=== PATIENT | male | born 1975 | race Caucasian/White ===

== ENCOUNTER 2017-05-20 17:31 | Emergency (ER) | payer SELFPAY ==
[2017-05-20 18:05] VITALS: BP 136/88
[2017-05-20] MEDS ORDERED: OXYCODONE-ACETAMINOPHEN 5-325 MG TABLET PO ONE (18:36)
--- NOTE | 2017-05-20 18:37 | ER Document Report ---
ED General - General Chief Complaint: Post Surgical Pain Stated Complaint: POST OP PAIN Time Seen by Provider: 05/20/17 18:28 Mode of Arrival: Ambulatory Information source: Patient Notes: 41 yr old male presents with complaints of right axillary abscess that was drained 5 days ago. Pt denies any fevers or chills, notes it was extremely swollen red with wbc count of 23. pt also notes that he was diagnosed as a diabetic, but was not given any supplies. TRAVEL OUTSIDE OF THE [place] IN LAST 30 DAYS: No - HPI Onset: Last week Onset/Duration: Persistent Quality of pain: Achy Severity: Mild Pain Level: 1 Associated symptoms: None Exacerbated by: Denies Relieved by: Denies Similar symptoms previously: Yes Recently seen / treated by doctor: Yes - Related Data Allergies/Adverse Reactions: erythromycin base Allergy (Verified 05/20/17 18:06) Past Medical History - Social History Smoking Status: Current Every Day Smoker Cigarette use (# per day): Yes Chew tobacco use (# tins/day): No Smoking Education Provided: No Frequency of alcohol use: Occasional Drug Abuse: None Family History: Reviewed & Not Pertinent - Past Medical History Cardiac Medical History: Reports: Hx Hypertension Endocrine Medical History: Reports: Hx Diabetes Mellitus Type 2 Renal/ Medical History: Reports: Hx Kidney Stones. Denies: Hx Peritoneal Dialysis Past Surgical History: Reports: Hx Tonsillectomy - Immunizations Hx Diphtheria, Pertussis, Tetanus Vaccination: No Review of Systems - Review of Systems Notes: REVIEW OF SYSTEMS: CONSTITUTIONAL : Denies fever, chills, or sweats. Denies recent illness. EENT: Denies eye, ear, throat, or mouth pain or symptoms. Denies nasal or sinus congestion or discharge. Denies throat, tongue, or mouth swelling or difficulty swallowing. CARDIOVASCULAR: Denies chest pain. Denies palpitations or racing or irregular heart beat. Denies ankle edema. RESPIRATORY: Denies cough, cold, or chest congestion. Denies shortness of breath, difficulty breathing, or wheezing. GASTROINTESTINAL: Denies abdominal pain or distention. Denies nausea, vomiting , or diarrhea. Denies blood in vomitus, stools, or per rectum. Denies black, tarry stools. Denies constipation. GENITOURINARY: Denies difficulty urinating, painful urination, burning, frequency, blood in urine, or discharge. MUSCULOSKELETAL: Denies back or neck pain or stiffness. Denies joint pain or swelling. SKIN: Admits to abscess HEMATOLOGIC : Denies easy bruising or bleeding. LYMPHATIC: Denies swollen, enlarged glands. NEUROLOGICAL: Denies confusion or altered mental status. Denies passing out or loss of consciousness. Denies dizziness or lightheadedness. Denies headache. Denies weakness or paralysis or loss of use of either side. Denies problems with gait or speech. Denies sensory loss, numbness, or tingling. Denies seizures. PSYCHIATRIC: Denies anxiety or stress. Denies depression, suicidal ideation, or homicidal ideation. ALL OTHER SYSTEMS REVIEWED AND NEGATIVE. Dictation was performed using [employer] voice recognition software PHYSICAL EXAMINATION: GENERAL: Well-appearing, well-nourished and in no acute distress. HEAD: Atraumatic, normocephalic. EYES: Pupils equal round and reactive to light, extraocular movements intact, sclera anicteric, conjunctiva are normal. ENT: Nares patent, oropharynx clear without exudates. Moist mucous membranes. NECK: Normal range of motion, supple without lymphadenopathy LUNGS: Breath sounds clear to auscultation bilaterally and equal. No wheezes rales or rhonchi. HEART: Regular rate and rhythm without murmurs ABDOMEN: Soft, nontender, nondistended abdomen. No guarding, no rebound. No masses appreciated. Musculoskeletal: Normal range of motion, no pitting or edema. No cyanosis. NEUROLOGICAL: Cranial nerves grossly intact. Normal speech, normal gait. Normal sensory, motor exams PSYCH: Normal mood, normal affect. SKIN: Open incision of the right axillary region no drainage noted Physical Exam - Vital signs Vitals: Temp Pulse Resp BP Pulse Ox 98.3 F 106 H 18 136/88 H 97 05/20/17 18:02 05/20/17 18:02 05/20/17 18:02 05/20/17 18:02 05/20/17 18:02 Course - Re-evaluation Re-evalutation: 05/20/17 20:16 Patient's white count today is 13.1 which is significant improvement from previous presentation, I took the packing out squeeze area and no pus was noted , with ultrasound I did not note any pockets of abscess, cellulitis is noted and there is mild firmness around where the incision is. Overall the patient looks well there is no cellulitis externally there is no erythema. I did increase the patient's antibiotics from 20 tablets q. 12 to clindamycin 300 mg every 6. I did write him prescriptions for glucometer, lancets, and strips. I gave the patient information on insulin sliding scale as well. Patient will be given the wound care clinic and very strict return precautions After performing a Medical Screening Examination, I estimate there is LOW risk for OPEN FRACTURE, COMPARTMENT SYNDROME, TENDON RUPTURE, ACUTE NEUROVASCULAR INJURY, or RETAINED FOREIGN BODY, thus I consider the discharge disposition reasonable. Also, there is no evidence or peritonitis, sepsis, or toxicity. I have reevaluated this patient multiple times and no significant life threatening changes are noted. The patient and I have discussed the diagnosis and risks, and we agree with discharging home with close follow-up with the understanding that symptoms and presentations can change. We also discussed returning to the Emergency Department immediately if new or worsening symptoms occur. We have discussed the symptoms which are most concerning (e.g., changing or worsening pain, fever, numbness, weakness, cool or painful digits) that necessitate immediate return. - Vital Signs Vital signs: Temp Pulse Resp BP Pulse Ox 98.3 F 106 H 18 136/88 H 97 05/20/17 18:02 05/20/17 18:02 05/20/17 18:02 05/20/17 18:02 05/20/17 18:02 - Laboratory Result Diagrams: 05/20/17 18:42 05/20/17 18:42 Laboratory results interpreted by me: 05/20/17 05/20/17 05/20/17 18:23 18:42 18:42 WBC 13.1 H Glucose 231 H POC Glucose 252 H Discharge - Discharge Clinical Impression: Abscess Diabetes Qualifiers: Diabetes mellitus type: type 1 Diabetes mellitus complication status: without complication Qualified Code(s): E10.9 - Type 1 diabetes mellitus without complications Condition: Stable Disposition: HOME, SELF-CARE Instructions: Insulin ([facility]), Post Incision and Drainage Prescriptions: Clindamycin HCl 300 mg PO Q6 #20 capsule Referrals: Wound Care [Provider Group] - Follow up tomorrow
[2017-05-20 18:57] LABS: ABSOLUTE BASOPHILS # (AUTO) 0.1 10^3/uL (0.0-0.2); ABSOLUTE EOSINOPHILS # (AUTO) 0.3 10^3/uL (0.0-0.6); ABSOLUTE LYMPHOCYTES (AUTO) 3.6 10^3/uL (0.5-4.7); ABSOLUTE MONOCYTES (AUTO) 0.8 10^3/uL (0.1-1.4); ABSOLUTE NEUT (AUTO) 8.2 10^3/uL (1.7-8.2); BASOPHILS % (AUTO) 0.7 % (0-2); EOSINOPHILS % (AUTO) 2.4 % (0-6); HEMATOCRIT 47.8 % (37.9-51.0); HEMOGLOBIN 16.5 g/dL (13.5-17.0); HGB HCT DIFFERENCE 1.7; LYMPHOCYTES % (AUTO) 27.5 % (13-45); MEAN CORPUSCULAR HEMOGLOBIN 29.9 pg (27.0-33.4); MEAN CORPUSCULAR HGB CONC 34.5 g/dL (32.0-36.0); MEAN CORPUSCULAR VOLUME 87 fl (80-97); MONOCYTES % (AUTO) 6.3 % (3-13); RED CELL DISTRIBUTION WIDTH 13.6 % (11.5-14.0); SEGMENTED NEUTROPHILS % (AUTO) 63.1 % (42-78); WHITE BLOOD COUNT 13.1 10^3/uL (4.0-10.5)
[2017-05-20 19:04] LABS: ALANINE AMINOTRANSFERASE 66 U/L (21-72); ALBUMIN 4.5 g/dL (3.5-5.0); ALKALINE PHOSPHATASE 95 U/L (38-126); ANION GAP 11 (5-19); ASPARTATE AMINO TRANSFERASE 30 U/L (17-59); BILIRUBIN,DIRECT 0.4 mg/dL (0.0-0.4); BILIRUBIN,TOTAL 0.5 mg/dL (0.2-1.3); BLOOD UREA NITROGEN 12 mg/dL (7-20); CALCIUM 10.1 mg/dL (8.4-10.2); CARBON DIOXIDE 25 mmol/L (22-30); CHLORIDE 102 mmol/L (98-107); CREATININE RESULT 0.74 mg/dL (0.52-1.25); GLUCOSE 231 mg/dL (75-110); POTASSIUM 4.3 mmol/L (3.6-5.0); SODIUM 137.9 mmol/L (137-145); TOTAL PROTEIN 7.3 g/dL (6.3-8.2)
== END 2017-05-20 19:00 | disposition home or self-care (01) ==
LOC: ER 17:31
DX: L02.411 Cutaneous abscess of right axilla (principal); Z98.890 Other specified postprocedural states; E10.9 Type 1 diabetes mellitus without complications; I10 Essential (primary) hypertension; F17.210 Nicotine dependence, cigarettes, uncomplicated; Z88.1 Allergy status to other antibiotic agents
CPT/HCPCS: 36415; 80053; 82962; 85025; 99283

== ENCOUNTER 2017-06-27 17:07 | Emergency (ER) | payer MEDICAID ==
--- NOTE | 2017-06-27 18:11 | ER Document Report ---
ED Extremity Problem, Lower - General Chief Complaint: Foot Pain Stated Complaint: PAIN IN FEET Time Seen by Provider: 06/27/17 17:55 Notes: 42 yo newly diagnosed diabetic male c/o pain, burning to both feet x several weeks. worse at night and after prolonged standing. pt diagnosed as diabetic approx 2 months ago. pt is taking insulin as prescribed, making concerted lifestyle changes. reports blood sugars are averaging around 250. pt has not established with local pcm yet, just received Medicare. pt denies any change in color or temp of feet. denies any chest pain, shortness of breath. TRAVEL OUTSIDE OF THE [place] IN LAST 30 DAYS: No - HPI Patient complains to provider of: Pain. No: Swelling Occurred: Other - 2 wks Quality of pain: Burning Pain Level: 4 Exacerbated by: Walking, Other - rest Relieved by: Nothing - Related Data Allergies/Adverse Reactions: erythromycin base Allergy (Verified 06/27/17 17:10) Past Medical History - General Information source: Patient - Social History Smoking Status: Former Smoker Frequency of alcohol use: None Drug Abuse: None Lives with: Family Family History: Reviewed & Not Pertinent - Past Medical History Cardiac Medical History: Reports: Hx Hypertension Endocrine Medical History: Reports: Hx Diabetes Mellitus Type 2 Renal/ Medical History: Reports: Hx Kidney Stones. Denies: Hx Peritoneal Dialysis Past Surgical History: Reports: Hx Tonsillectomy - Immunizations Hx Diphtheria, Pertussis, Tetanus Vaccination: No Review of Systems - Review of Systems Constitutional: No symptoms reported EENT: No symptoms reported Cardiovascular: No symptoms reported Respiratory: No symptoms reported Gastrointestinal: No symptoms reported Genitourinary: No symptoms reported Male Genitourinary: No symptoms reported Musculoskeletal: No symptoms reported, See HPI Skin: No symptoms reported Hematologic/Lymphatic: No symptoms reported Neurological/Psychological: No symptoms reported Physical Exam - Vital signs Vitals: Temp Pulse Resp BP Pulse Ox 98.5 F 102 H 18 137/87 H 97 06/27/17 17:11 06/27/17 17:11 06/27/17 17:11 06/27/17 17:11 06/27/17 17:11 Interpretation: Normal - General General appearance: Appears well, Alert In distress: None - HEENT Head: Normocephalic, Atraumatic Eyes: Normal Pupils: PERRL - Respiratory Respiratory status: No respiratory distress Chest status: Nontender Breath sounds: Normal Chest palpation: Normal - Cardiovascular Rhythm: Regular Heart sounds: Normal auscultation Murmur: No - Abdominal Inspection: Normal Distension: No distension Bowel sounds: Normal Tenderness: Nontender Organomegaly: No organomegaly - Back Back: Normal, Nontender - Extremities General upper extremity: Normal inspection, Nontender, Normal color, Normal ROM , Normal temperature Foot: Other - normal color, increased thickness to heels with small cracking. no signs of infection to plantar or webbing, no ulcerations. decreased sensation to heels and big toes bilat - Neurological Neuro grossly intact: Yes Cognition: Normal Orientation: AAOx4 Bernardo Coma Scale Eye Opening: Spontaneous [place] Coma Scale Verbal: Oriented Bern[place] Coma Scale Motor: Obeys Commands Bernardo Coma Scale Total: 15 Speech: Normal Motor strength normal: LUE, RUE, LLE, RLE Sensory: Normal - Psychological Associated symptoms: Normal affect, Normal mood - Skin Skin Temperature: Warm Skin Moisture: Dry Skin Color: Normal Irregularity with: negative: Swelling Course - Re-evaluation Re-evalutation: 06/27/17 18:46 pt is afebrile, nontoxic. Accucheck 249 at bedside. Pt's symptoms of Sharp, superficial, burning, tingling pain in feet more than calves, pain present at rest, pain worse in bed and pain preceded by recent changes in glycemic control are more c/w painful diabetic neuropathy than vascular disease. I will refill pt's insulin and he is instructed to continue his present sliding scale. I will write a short Rx for pain medication and start pt on Neurontin. It was empahasized to pt that glycemic control is essential and neuropathy symptoms may improve. He is to take Neurontin as prescribed and narcotic sparingly for severe pain. pt acknowledges understanding and is stable for discharge - Vital Signs Vital signs: Temp Pulse Resp BP Pulse Ox 98.5 F 102 H 18 137/87 H 97 06/27/17 17:11 06/27/17 17:11 06/27/17 17:11 06/27/17 17:11 06/27/17 17:11 Discharge - Discharge Clinical Impression: Pain in both feet Diabetes Qualifiers: Diabetes mellitus type: type 2 Diabetes mellitus complication status: with unspecified complications Condition: Stable Disposition: HOME, SELF-CARE Instructions: Insulin ([facility]), Neuropathy ([facility]), Oral Narcotic Medication ([facility]) Additional Instructions: Please take your Diabetes medications as prescribed Optimal glucose control is essential foot care is important to prevent ulceration Please establish with a primary care provider JESSICA to manage diabetes Take pain medications as prescribed Prescriptions: Insulin Detemir [Levemir] 30 unit SQ QHS #2 vial Gabapentin [Neurontin 300 mg Capsule] 300 mg PO TID #90 cap Insulin Lispro [Humalog Insulin (Lispro) 100 unit/mL] 0 - 6 unit SUBCUT .SLD SCALE #2 vial Oxycodone HCl/Acetaminophen [Percocet 5-325 mg Tablet] 1 tab PO Q4H PRN #25 tablet PRN Reason: Pregabalin [Lyrica 50 Mg Capsule] 50 mg PO TID #90 capsule
[2017-06-27 18:59] VITALS: BP 123/78
== END 2017-06-27 18:35 | disposition home or self-care (01) ==
LOC: ER 17:07
DX: M79.671 Pain in right foot (principal); M79.672 Pain in left foot; R20.8 Other disturbances of skin sensation; R20.2 Paresthesia of skin; E11.8 Type 2 diabetes mellitus with unspecified complications; I10 Essential (primary) hypertension; Z79.4 Long term (current) use of insulin; Z87.891 Personal history of nicotine dependence; Z88.1 Allergy status to other antibiotic agents
CPT/HCPCS: 82962; 99283